=== PATIENT | male | born 1990 | race Caucasian/White ===

== ENCOUNTER 2016-10-14 15:46 | Emergency (ER) | payer MEDICAID ==
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
[2016-10-14] MEDS ORDERED: Albuterol 2.5 MG/3 ML NEB.SOL* (0.083%) INH ONE (16:38)
[2016-10-14] MEDS ORDERED: Ipratropium 0.5MG/2.5ML NEB* 0.5 MG/2.5 ML NEB.SOLN INH ONE (16:38)
--- NOTE | 2016-10-14 17:28 | RAD ---
INDICATION: Shortness of breath cough and fever. COMPARISON: There are no prior studies available for comparison. TECHNIQUE: Dual-energy PA and lateral views of the chest were obtained. FINDINGS: The heart is within normal limits in size. Mediastinal and hilar contours appear within normal limits. The lungs are clear. No pleural effusion or pneumothorax is seen. IMPRESSION: NO EVIDENCE FOR ACTIVE CARDIOPULMONARY DISEASE.
--- NOTE | 2016-10-14 17:31 | RAD ---
INDICATION: Right flank abdominal pain for one week ago evaluate for calculus. COMPARISON: There are no prior studies available for comparison. TECHNIQUE: A CT scan of the abdomen and pelvis was performed without intravenous or oral contrast. Contiguous axial sections were obtained from the lung bases through the symphysis pubis. Images were reconstructed in the coronal and sagittal planes. FINDINGS: The lung bases are clear. No pleural effusion is present. The liver and spleen are enlarged. No focal abnormality is seen on this noncontrast study. The gallbladder appears contracted. No calcified gallstones are seen. The pancreas appears normal in size. No ductal distention or calcifications are noted. The adrenal glands and kidneys are normal in size. No renal calculi or hydronephrosis is seen. No renal or ureteral calculi are seen. The aorta is normal in caliber without significant calcific plaque. No significant enlarged retroperitoneal lymph nodes are seen. The stomach is distended with food debris. The small bowel colon appear nondistended. The appendix appears to be within normal limits. There is mild to moderate descending and sigmoid diverticulosis without evidence for diverticulitis. No free intraperitoneal air or fluid is seen. There is a fracture of the right anterolateral eighth rib at the costochondral junction. IMPRESSION: 1. NO EVIDENCE FOR ACUTE INTRA-ABDOMINAL ABNORMALITY. 2. ACUTE FRACTURE OF THE RIGHT ANTEROLATERAL EIGHTH RIB AT THE COSTOCHONDRAL JUNCTION, RECOMMEND CLINICAL CORRELATION. 3. HEPATOSPLENOMEGALY. 4. DISTENDED STOMACH WITH FOOD DEBRIS.
[2016-10-14 18:01] VITALS: BP 110/52
[2016-10-15 11:47] LABS: EBV Response YES
[2016-10-15 11:55] LABS: Manual Entry Verification HAN0055
[2016-10-15 12:00] LABS: Mono Internal Control QC Line Present
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
[2016-10-17 13:58] LABS: EBV Capsid Ag IgG Ab Positive (Negative); EBV Capsid Ag IgM Ab Negative (Negative)
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
== END 2016-10-14 18:05 | disposition home or self-care (01) ==
LOC: UCCORT 15:46
DX: J06.9 Acute upper respiratory infection, unspecified (principal); J32.9 Chronic sinusitis, unspecified; J40 Bronchitis, not specified as acute or chronic; B34.9 Viral infection, unspecified; S22.31XA Fracture of one rib, right side, initial encounter for closed fracture; X58.XXXA Exposure to other specified factors, initial encounter; Y92.9 Unspecified place or not applicable; R16.0 Hepatomegaly, not elsewhere classified; R16.1 Splenomegaly, not elsewhere classified
CPT/HCPCS: 36415; 71020; 74176; 86308; 86664; 86665; 99212; G0463; J7644

== ENCOUNTER 2017-06-03 12:48 | Emergency (ER) | payer MEDICAID | END 2017-06-03 13:31 | disposition left against medical advice (07) | LOC: UCCORT 12:48 | DX: L98.9 Disorder of the skin and subcutaneous tissue, unspecified (principal); Z53.21 Procedure and treatment not carried out due to patient leaving prior to being seen by health care provider ==

== ENCOUNTER 2017-06-08 10:38 | Emergency (ER) | payer MEDICAID, OTHER ==
[2017-06-08 11:24] VITALS: BP 127/65
[2017-06-08] MEDS ORDERED: ceFAZolin 500 MG VIAL(*) 500 MG VIAL IVPB ONE (11:43)
[2017-06-08] MEDS ORDERED: ceFAZolin 1 GM VIAL(*) ONE (11:59)
--- NOTE | 2017-06-08 12:11 | UC ---
UC General HPI - HPI Summary HPI Summary: C/o cough, sinus congestion, runny nose last 1-2 weeks. No fever / chills. Cough minimally productive. No rash. No GI issues (except skin isssue as below ). Recent long air travel (from [facility]) after a [facility] tournement. Stayed in the city. Also c/o tailbone area pain. Pain started on and off approx 9 months ago. Two weeks ago in , the area swelled up, and he was dx'd with a pilonidal cyst. Placed on Abx (flagyl?). The abscess area drained spointansously there. However, approx 4 days ago, the area drained again. Describes a "a lot" of dark foul odor material. Better now, but still very painful. 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 No current fever /chills. No currently draining. Took flagyl last 2 days (dose unclear). - History of Current Complaint Chief Complaint: UCGeneralIllness Stated Complaint: flu sxs,staff infection? Time Seen by Provider: 06/08/17 11:15 Hx Obtained From: Patient - Allergy/Home Medications Allergies/Adverse Reactions: Allergies Allergy/AdvReac Type Severity Reaction Status Date / Time No Known Allergies Allergy Verified 06/08/17 11:09 Home Medications: Home Medications metroNIDAZOLE TAB* [Flagyl 250 mg TAB*] 1 tab TID 06/08/17 [History Confirmed ] PMH/Surg Hx/FS Hx/Imm Hx Previously Healthy: Yes Other History Of: Negative For: HIV, Hepatitis B, Hepatitis C, Anticoagulant Therapy - Surgical History Surgical History: None - Family History Known Family History: Positive: Other - unk father hx Negative: Cardiac Disease, Hypertension, Diabetes - Social History Alcohol Use: None Substance Use Type: None Smoking Status (MU): Never Smoked Tobacco Type: Smokeless Tobacco - Immunization History Most Recent Influenza Vaccination: none 2017 Review of Systems Constitutional: Negative - see hpi Skin: Other - see hpi Eyes: Negative ENT: Other - see hpi Respiratory: Other - see hpi Cardiovascular: Negative Gastrointestinal: Negative Genitourinary: Negative - see hpi Motor: Negative Neurovascular: Negative Musculoskeletal: Negative - see hpi Neurological: Negative Psychological: Negative Is Patient Immunocompromised?: No All Other Systems Reviewed And Are Negative: Yes Physical Exam Triage Information Reviewed: Yes Appearance: Well-Nourished Vital Signs: Initial Vital Signs Temp 97.2 F 06/08/17 11:11 Pulse 64 06/08/17 11:11 Resp 16 06/08/17 11:11 BP 127/65 06/08/17 11:11 Pulse Ox 100 06/08/17 11:11 Vital Signs Reviewed: Yes Eye Exam: Normal ENT: Positive: Pharyngeal erythema, TM dull - au, Other: - R caulifl ear Neck exam: Normal Neck: Positive: Supple, Nontender, No Lymphadenopathy Respiratory Exam: Normal Respiratory: Positive: Chest non-tender, Lungs clear, Normal breath sounds, No respiratory distress, No accessory muscle use Cardiovascular Exam: Normal Cardiovascular: Positive: RRR, No Murmur, Pulses Normal, Brisk Capillary Refill Abdominal Exam: Normal Abdomen Description: Positive: Nontender, Soft Musculoskeletal Exam: Normal - gait steady Neurological Exam: Normal Psychological Exam: Normal - conversing easily and appropriately Skin Exam: Normal - nondiaphoretic, Other - pilonidal area with swelling, nonfluctuant. Noncellulitic. C/w site of pilonidal abscess. ++ tender. Course/Dx - Course Course Of Treatment: No new problems in CCC. Cyst does not need drainage now, but abx are indicated. F/u general surgeon, Tad spoke with [facility] office. He will f/u Dr Renee on Sunday for appt. (likely will need removal in the long run). - Differential Dx - Multi-Symptom Provider Diagnoses: URI. Pilonidal cyst Discharge - Discharge Plan Condition: Stable Disposition: HOME Prescriptions: DOXYcycline CAP(*) [DOXYcycline 100MG CAP(*)] 100 mg PO BID #20 cap Lactobacillus Acidophilu (GG)* [Culturelle*] 1 cap PO DAILY #30 cap Metronidazole [Flagyl 500 MG TAB] 500 mg PO BID #20 tab Patient Education Materials: Pilonidal Cyst (ED), Upper Respiratory Infection ( ED) Referrals: Aparna Renee MD [Medical Doctor] - Rosalie Mcintosh [Primary Care Provider] - Additional Instructions: Follow up with your primary care provider - next week if possible for recheck. Blood work today. Follow up with General surgeon, Dr. Renee, Sunday at 10:45am (arrive early to fill out paperwork). Seek medical attention for worse or new problems. Avoid alcohol while taking metronidazole.
[2017-06-08 19:13] LABS: Hematocrit 48 % (42-52); Hemoglobin 15.8 g/dl (14.0-18.0); Mean Corpuscular HGB Conc 33 g/dl (31-36); Mean Corpuscular Hemoglobin 30 pg (27-31); Mean Corpuscular Volume 90 fL (80-94); Mean Platelet Volume 13 um3 (7.4-10.4); Red Blood Count 5.29 10^6/ul (4.0-5.4); Red Cell Distribution Width 14 % (10.5-15); White Blood Count 3.7 10^3/ul (3.5-10.8)
[2017-06-08 19:24] LABS: BUN/Creatinine Ratio 20.7 (8-20); C Reactive Protein 2.66 mg/L (< 5.00); Calcium 9.6 mg/dL (8.6-10.3); EGFR African American 134.4 (>60); EGFR Non-African American 104.5 (>60); Globulin 2.4 g/dL (2-4); Potassium 4.2 mmol/L (3.5-5.0); Total Bilirubin 1.2 mg/dL (0.2-1.0); Total Protein 6.4 g/dL (6.4-8.9)
--- NOTE | 2017-06-09 08:03 | UC ---
Progress - Progress Note Progress Note: CBC with low platelets. Will need to f/u with PCP for a recheck.
== END 2017-06-08 12:56 | disposition home or self-care (01) ==
LOC: UCCORT 10:38
DX: J06.9 Acute upper respiratory infection, unspecified (principal); L05.91 Pilonidal cyst without abscess
CPT/HCPCS: 36415; 80053; 85025; 86140; 87502; 96365; 99212; G0463; J0690

== ENCOUNTER 2017-11-30 11:27 | Emergency (ER) | payer SELFPAY ==
[2017-11-30 12:07] VITALS: BP 112/65
--- NOTE | 2017-11-30 12:38 | UC ---
Lower Extremity/Ankle HPI - HPI Summary HPI Summary: hyperextension injury to the left foot, pain in the first two toes and swelling and bruising. - History of Current Complaint Hx Obtained From: Patient Onset/Duration: Sudden Onset, Lasting Days - 1 Severity Initially: Severe Severity Currently: Moderate Pain Intensity: 7 Aggravating Factor(s): Standing, Ambulation Alleviating Factor(s): Nothing Able to Bear Weight: Yes <Kalie Cuevas - Last Filed: 11/30/17 13:07> <Taylor Hanna - Last Filed: 11/30/17 13:54> - History of Current Complaint Chief Complaint: UCLowerExtremity Stated Complaint: LFT FOOT INJURY Time Seen by Provider: 11/30/17 12:29 - Allergies/Home Medications Allergies/Adverse Reactions: Allergies Allergy/AdvReac Type Severity Reaction Status Date / Time No Known Allergies Allergy Verified 11/30/17 12:08 Home Medications: Home Medications NK [No Home Medications Reported] 11/30/17 [History Confirmed 11/30/17] PMH/Surg Hx/FS Hx/Imm Hx Previously Healthy: Yes Other History Of: Negative For: HIV, Hepatitis B, Hepatitis C, Anticoagulant Therapy - Surgical History Surgical History: None - Family History Known Family History: Positive: Other - unk father hx Negative: Cardiac Disease, Hypertension, Diabetes - Social History Alcohol Use: None Substance Use Type: None Smoking Status (MU): Never Smoked Tobacco Type: Smokeless Tobacco Amount Used/How Often: 1 tin weekly - Immunization History Most Recent Influenza Vaccination: none 2016 <Kalie Cuevas - Last Filed: 11/30/17 13:07> Review of Systems Constitutional: Negative Skin: Bruising, Other - swelling Eyes: Negative ENT: Negative Respiratory: Negative Cardiovascular: Negative Gastrointestinal: Negative Genitourinary: Negative Motor: Negative Neurovascular: Negative Musculoskeletal: Negative Neurological: Negative Psychological: Negative Is Patient Immunocompromised?: No All Other Systems Reviewed And Are Negative: Yes <Kalie Cuevas - Last Filed: 11/30/17 13:07> Physical Exam Triage Information Reviewed: Yes Appearance: Well-Appearing, Well-Nourished, Pain Distress Vital Signs: Initial Vital Signs Temp 98.5 F 11/30/17 11:58 Pulse 61 11/30/17 11:58 Resp 18 04/20/18 11:58 BP 112/65 11/30/17 11:58 Pulse Ox 97 11/30/17 11:58 Vital Signs Reviewed: Yes Eye Exam: Normal ENT Exam: Normal Dental Exam: Normal Neck exam: Normal Respiratory Exam: Normal Respiratory: Positive: Chest non-tender, Lungs clear, Normal breath sounds Cardiovascular Exam: Normal Cardiovascular: Positive: RRR, No Murmur, Pulses Normal Musculoskeletal: Positive: Strength Limited @ - in left foot, cant go up on toes , hard to flx and ext, ROM Limited @ - due to pain and swelling, Edema @ - toes and top of foot Neurological Exam: Normal Psychological Exam: Normal Skin Exam: Normal <Kalie Cuevas - Last Filed: 11/30/17 13:07> Vital Signs: Initial Vital Signs Temp 98.5 F 11/30/17 11:58 Pulse 61 11/30/17 11:58 Resp 18 11/30/17 11:58 BP 112/65 11/30/17 11:58 Pulse Ox 97 11/30/17 11:58 <Taylor Hanna - Last Filed: 11/30/17 13:54> Lower Extremity Course/Dx - Course Course Of Treatment: hx obtained, exam performed ,meds reviewed, xray obtained neg for fracture or dislocation, great toe taped and post op shoe for support - Differential Dx/Diagnosis Differential Diagnosis/HQI/PQRI: Contusion, Dislocation, Fracture (Closed), Sprain, Strain Provider Diagnoses: great toe sprain left foot <Kalie Cuevas - Last Filed: 11/30/17 13:07> Discharge - Sign-Out/Discharge Documenting (check all that apply): Discharge - Billing Disposition and Condition Condition: STABLE Disposition: HOME <Kalie Cuevas - Last Filed: 11/30/17 13:07> - Billing Disposition and Condition Condition: STABLE Disposition: HOME <Taylor Hanna - Last Filed: 11/30/17 13:54> - Discharge Plan Condition: Stable Disposition: HOME Patient Education Materials: Sprain (ED) Referrals: Laurel Conroy NP [Primary Care Provider] - Additional Instructions: 1. warm water soaks multiple times a day 2. Rest, elevate, and ibuprofen for pain and inflammation. xray negative for fracture or dislocation Attestation Statement User Type: Provider - I was available for consult. This patient was seen by the KRYSTAL. The patient was not presented to, seen by, or examined by me. -Shelby <Taylor Hanna - Last Filed: 11/30/17 13:54>
--- NOTE | 2017-11-30 12:41 | RAD ---
Indication: Hyperflexion injury left foot. 3 views of left foot demonstrates no fracture. No other bone or joint abnormality is noted. IMPRESSION: No fracture of left foot is noted.
== END 2017-11-30 13:18 | disposition home or self-care (01) ==
LOC: UCCORT 11:27
DX: S93.602A Unspecified sprain of left foot, initial encounter (principal); X58.XXXA Exposure to other specified factors, initial encounter; Y92.9 Unspecified place or not applicable
CPT/HCPCS: 99212; G0463

== ENCOUNTER 2018-11-24 18:36 | Emergency (ER) | payer SELFPAY ==
[2018-11-24 19:13] VITALS: BP 113/68
--- NOTE | 2018-11-24 19:34 | UC ---
Back Pain HPI - HPI Summary HPI Summary: C/O Right and left flank pain worse with deep breaths. Left anterior chest pain also worse with a deep breath. - History of Current Complaint Chief Complaint: UCRespiratory Stated Complaint: COUGH/CYST ON TAILBONE Time Seen by Provider: 11/24/18 19:16 Hx Obtained From: Patient Onset/Duration: Sudden Onset, Lasting Weeks - 1, Still Present Timing: Constant Severity Initially: Mild Severity Currently: Moderate Pain Intensity: 5 Back Pain: Is Discrete @ - bilateral flanks Character: Dull - like a fullness/ swollen feeling Aggravating Factor(s): Other - deep breathing Alleviating Factor(s): Rest Associated Signs And Symptoms: Positive: Numbness, Flank Pain. Negative: Bruising, Fever, Weakness, Bladder Incontinence, Bowel Incontinence, Weight Loss , Pain with Weight Bearing - Allergies/Home Medications Allergies/Adverse Reactions: Allergies Allergy/AdvReac Type Severity Reaction Status Date / Time No Known Allergies Allergy Verified 11/24/18 19:08 PMH/Surg Hx/FS Hx/Imm Hx Previously Healthy: Yes Other History Of: Negative For: HIV, Hepatitis B, Hepatitis C, Anticoagulant Therapy - Surgical History Surgical History: None - Family History Known Family History: Positive: Other - unk father hx Negative: Cardiac Disease, Hypertension, Diabetes - Social History Occupation: Employed Full-time Lives: With Family Alcohol Use: None Substance Use Type: Marijuana Substance Use Comment - Amount & Last Used: 11/24/18 Smoking Status (MU): Never Smoked Tobacco Type: Smokeless Tobacco Amount Used/How Often: 1 tin weekly - Immunization History Most Recent Influenza Vaccination: none 2016 Review of Systems All Other Systems Reviewed And Are Negative: Yes ENT: Positive: Nasal Discharge, Sinus Congestion Cardiovascular: Positive: Chest Pain - left anterior pain with deep breaths Musculoskeletal: Positive: Myalgia - around the flanks bilaterally Is Patient Immunocompromised?: No Physical Exam Triage Information Reviewed: Yes Appearance: Well-Appearing, No Pain Distress, Well-Nourished Vital Signs: Initial Vital Signs Temp 98.4 F 11/24/18 19:08 Pulse 64 11/24/18 19:08 Resp 16 11/24/18 19:08 BP 113/68 11/24/18 19:08 Pulse Ox 99 11/24/18 19:08 Vital Signs Reviewed: Yes Eyes: Positive: Conjunctiva Clear ENT: Positive: Pharynx normal, Nasal congestion - bilateral allergic congestion , TMs normal - right cauliflower ear Neck exam: Normal Respiratory Exam: Normal Cardiovascular Exam: Normal Abdomen Description: Positive: Nontender. Negative: CVA Tenderness (R), CVA Tenderness (L) Musculoskeletal Exam: Normal Neurological: Positive: Other: - bilateral decreased pinprick sensation T8-T10, left > right Psychological Exam: Normal Skin: Positive: Other - 2 swollen tender areas around left side pilonidal opening. Back Pain Course/Dx - Differential Dx/Diagnosis Differential Diagnosis/HQI/PQRI: Arthritis, Herniated Disc, Strain, Sprain Provider Diagnosis: Thoracic radiculopathy, Allergic rhinitis, Pilonidal abscess Discharge - Sign-Out/Discharge Documenting (check all that apply): Patient Departure All imaging exams completed and their final reports reviewed: No - Discharge Plan Condition: Stable Disposition: HOME Prescriptions: DOXYcycline CAP(*) [DOXYcycline 100MG CAP(*)] 100 mg PO BID #20 cap Patient Education Materials: Lumbar Radiculopathy (ED), Allergic Rhinitis (ED) , Pilonidal Cyst (ED) Referrals: Laurel Conroy [employer] ENGINEER [Primary Care Provider] - Additional Instructions: NEILMED SINUS RINSE: CHECK OUT AT [facility] Saline nasal wash helps with mucous, allergies and congestion. It can be used up to twice a day or only as needed. Use lukewarm tap water. It does not have to be sterilized or distilled water. Do 1/3 on each side and snort out of both nostrils. Repeat the process with 1/6 of the bottle on each side with snorting in between to finish the solution in the bottle - Billing Disposition and Condition Condition: STABLE Disposition: Home
[2018-11-24] MEDS ORDERED: DOXYcycline CAP(*) 100 MG PO ONE (20:07)
--- NOTE | 2018-11-25 10:23 | UC ---
- Progress Note Progress Note: Radiologist reading of thoracic spine x-ray from November 24, 2018 comes back degenerative disc disease. No other acute pathology. Provider that they did not provide and interpretation on their documentation. Because there is no fracture are any acute finding on the x-ray it is not relevant to the final diagnosis and therefore there is no discrepancy. Course/Dx - Diagnoses Provider Diagnoses: Thoracic radiculopathy, Allergic rhinitis, Pilonidal abscess Discharge - Sign-Out/Discharge Documenting (check all that apply): Patient Departure All imaging exams completed and their final reports reviewed: Yes - Discharge Plan Condition: Stable Disposition: HOME Prescriptions: DOXYcycline CAP(*) [DOXYcycline 100MG CAP(*)] 100 mg PO BID #20 cap Patient Education Materials: Pilonidal Cyst (ED), Allergic Rhinitis (ED), Lumbar Radiculopathy (ED) Referrals: Laurel Conroy NP [Primary Care Provider] - Additional Instructions: NEILMED SINUS RINSE: CHECK OUT AT [facility] Saline nasal wash helps with mucous, allergies and congestion. It can be used up to twice a day or only as needed. Use lukewarm tap water. It does not have to be sterilized or distilled water. Do 1/3 on each side and snort out of both nostrils. Repeat the process with 1/6 of the bottle on each side with snorting in between to finish the solution in the bottle - Billing Disposition and Condition Condition: STABLE Disposition: Home
== END 2018-11-24 20:16 | disposition home or self-care (01) ==
LOC: UCCORT 18:36
DX: M54.14 Radiculopathy, thoracic region (principal); M51.34 Other intervertebral disc degeneration, thoracic region; J30.9 Allergic rhinitis, unspecified; L05.01 Pilonidal cyst with abscess; R07.1 Chest pain on breathing; M95.11 Cauliflower ear, right ear; F17.220 Nicotine dependence, chewing tobacco, uncomplicated
CPT/HCPCS: 72070; 81003; 99212; A9270-GY; G0463